=== PATIENT | female | born 1965 | race African-American/Black ===

== ENCOUNTER 2024-11-08 20:24 | Emergency (ER) | payer BC ==
[~2024-11-08] VITALS: Ht 157.5 cm; Wt 71.7 kg
[2024-11-08 20:34] VITALS: BP 157/77; TEMP 98.2; O2SAT 97
== END 2024-11-08 21:35 | disposition home or self-care (01) ==
LOC: ER 20:26
DX: S13.4XXA Sprain of ligaments of cervical spine, initial encounter (principal); Z88.0 Allergy status to penicillin; Z88.6 Allergy status to analgesic agent; Z98.890 Other specified postprocedural states; V89.2XXA Person injured in unspecified motor-vehicle accident, traffic, initial encounter; Y93.89 Activity, other specified; Y92.481 Parking lot as the place of occurrence of the external cause; Y99.8 Other external cause status